=== PATIENT | male | born 1990 | race Caucasian/White ===

== ENCOUNTER 2017-10-24 01:55 | Emergency (ER) | payer OTHER ==
[2017-10-24 02:39] LABS: CHLORIDE,CL 112 mmol/L (98-110); SODIUM,NA 145 mmol/L (136-146)
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
[2017-10-24 02:52] VITALS: BP 115/62
--- NOTE | 2017-10-26 14:52 | CR ---
EXAM DATE: 10/24/17 PATIENT'S AGE: 27 Patient: LEIGH ORTIZ Facility: [place], [place] Site . Site : 1992 Study: XRay Chest [id number] 2:33:30 AM Ordering Physician: Doctor Cordoba Final Report: Indication: Pain, shortness of breath Technique: Chest 1 view. Comparison: None Findings: Cardiovascular and mediastinum: Heart size and vasculature are normal in caliber and appearance. Mediastinum is within normal limits. Lungs and pleural space: Lungs are clear. No sign of infiltrate or mass. No sign of pleural effusion. No pneumothorax. Bones and soft tissues: No significant findings. Impression: No sign of acute disease. Dictated by Jonna Bhatia MD @ Oct 24 2017 2:43AM (Electronic Signature) Report Signed by Proxy. MARCOS
--- NOTE | 2017-10-26 14:53 | CT ---
EXAM DATE: 10/24/17 PATIENT'S AGE: 27 Patient: LEIGH ORTIZ Facility: [place], [place] Site . Site : 1990 Study: CT Head WO CONT [id number]/24/[id number] 2:35:42 AM Ordering Physician: Doctor Cordoba Final Report: INDICATION: Syncope, headache TECHNIQUE: CT head without contrast. COMPARISON: None FINDINGS: CSF spaces: Within normal limits for age. Brain parenchyma: The light-white differentiation is normal. No sign of mass, hemorrhage, or midline shift. Skull base and calvarium: The visualized paranasal sinuses and mastoid air cells demonstrate no acute or significant findings. The visualized orbits are grossly unremarkable. No skull fractures. IMPRESSION: Unremarkable noncontrast head CT. Please note that all CT scans at this facility use dose modulation, iterative reconstruction, and/or weight-based dosing when appropriate to reduce radiation dose to as low as reasonably achievable. Dictated by Jonna Bhatia MD @ Oct 24 2017 2:45AM (Electronic Signature) Report Signed by Proxy. MARCOS
== END 2017-10-24 02:55 | disposition home or self-care (01) ==
LOC: MW.ED 01:55
DX: Z04.71 Encounter for examination and observation following alleged adult physical abuse (principal); F17.210 Nicotine dependence, cigarettes, uncomplicated
CPT/HCPCS: 36415; 70450; 70450-26; 71010; 71010-26; 80053; 80305; 84484; 85025; 93005; 99284; 99285-25

== ENCOUNTER 2018-12-12 19:54 | Emergency (ER) | payer OTHER ==
--- NOTE | 2018-12-12 20:22 | EDM.PDOC ---
ED HPI GENERAL MEDICAL PROBLEM - General Chief Complaint: Lower Extremity Injury/Pain Stated Complaint: PT HURT RT FOOT Time Seen by Provider: 12/12/18 20:15 - History of Present Illness INITIAL COMMENTS - FREE TEXT/NARRATIVE: HISTORY AND PHYSICAL: History of present illness: The patient is a healthy 28-year-old male who was in his usual state of good health with no systemic issues when he dropped a TV stand on to his right fifth pinky toe and lateral foot about a half an hour ago. Patient had immediate pain and was concerned about the swelling so came here immediately. He is not placed ice on it nor has he taken any [id number] meds. The remainder the toes are without tenderness as is the proximal right leg. Review of systems: As per history of present illness and below otherwise all systems reviewed and negative. Past medical history: As per history of present illness and as reviewed below otherwise noncontributory. Surgical history: As per history of present illness and as reviewed below otherwise noncontributory. Social history: No reported history of drug or alcohol abuse. Family history: As per history of present illness and as reviewed below otherwise noncontributory. Physical exam: HEENT: Atraumatic, normocephalic, negative for conjunctival pallor or scleral icterus, mucous membranes moist, throat clear, neck supple, nontender, trachea midline. Lungs: Clear to auscultation, breath sounds equal bilaterally, chest nontender. Heart: S1S2, regular, and rhythm no overt murmurs Abdomen: Soft, nondistended, nontender. NABS Pelvis: Stable nontender. Genitourinary: Deferred. Rectal: Deferred. Extremities: Atraumatic, negative for cords or calf pain. At the right lower remedy there is full range of motion without defects or deficits and there is no hip thigh knee tib-fib ankle tenderness or calcaneus tenderness. There is tenderness at palpation of the fifth toe with redness and some swelling in a very superficial abrasion and this tenderness radiates up the fifth meta- tarsal. There is no discrete deformity of the metatarsal. Neurovascular unremarkable. Neuro: Awake, alert, oriented. Cranial nerves II through XII unremarkable. Cerebellum unremarkable. Motor and sensory unremarkable throughout. Exam nonfocal. Diagnostics: X-ray right foot Therapeutics: Patient declined pain medication Impression: Right foot/fifth toe contusion Definitive disposition and diagnosis as appropriate pending reevaluation and review of above. Right Toe-Little Pain Score (Numeric/FACES): 6 - Related Data Allergies Allergy/AdvReac Type Severity Reaction Status Date / Time No Known Allergies Allergy Verified 12/12/18 20:26 Home Meds: Home Meds . [No Known Home Meds] 12/12/18 [History] Past Medical History HEENT History: Reports: None Cardiovascular History: Reports: Arrhythmia Respiratory History: Reports: Asthma Other Musculoskeletal History: shoulder injury left Neurological History: Reports: Concussion Psychiatric History: Reports: None - Infectious Disease History Infectious Disease History: Reports: None - Past Surgical History HEENT Surgical History: Reports: None Musculoskeletal Surgical History: Reports: Shoulder Surgery Social & Family History - Family History Family Medical History: Noncontributory - Caffeine Use Caffeine Use: Reports: Coffee, Soda Review of Systems - Review of Systems Review Of Systems: ROS reveals no pertinent complaints other than HPI. ED EXAM, GENERAL - Physical Exam Exam: See Below (C dictation) Course - Vital Signs Last Recorded V/S: Last Vital Signs Temp 37.1 C 12/12/18 20:27 Pulse 73 12/12/18 20:27 Resp BP 112/63 12/12/18 20:27 Pulse Ox 97 12/12/18 20:27 Departure - Departure Time of Disposition: 21:06 Disposition: Home, Self-Care 01 Condition: Good Clinical Impression: Contusion of foot including toes Qualifiers: Encounter type: initial encounter Laterality: right Qualified Code(s): S90.31XA - Contusion of right foot, initial encounter; S90.121A - Contusion of right lesser toe(s) without damage to nail, initial encounter - Discharge Information Referrals: PCP,None [Primary Care Provider] - Forms: ED Department Discharge Additional Instructions: The following information is given to patients seen in the emergency department who are being discharged to home. This information is to outline your options for follow-up care. We provide all patients seen in our emergency department with a follow-up referral. The need for follow-up, as well as the timing and circumstances, are variable depending upon the specifics of your emergency department visit. If you don't have a primary care physician on staff, we will provide you with a referral. We always advise you to contact your personal physician following an emergency department visit to inform them of the circumstance of the visit and for follow-up with them and/or the need for any referrals to a consulting specialist. The emergency department will also refer you to a specialist when appropriate. This referral assures that you have the opportunity for followup care with a specialist. All of these measure are taken in an effort to provide you with optimal care, which includes your followup. Under all circumstances we always encourage you to contact your private physician who remains a resource for coordinating your care. When calling for followup care, please make the office aware that this follow-up is from your recent emergency room visit. If for any reason you are refused follow-up, please contact the [facility] emergency department at and ask to speak to the emergency department charge nurse. Dr Giulia Walker [address] [place] [id number] [facility]- Podiatry [address] [place] [id number] Fax: [phone] Ice and elevate the area and use [id number] medications for pain such as Tylenol and ibuprofen. You may follow-up with one of our podiatrists here in town using resources given to above for further care and evaluation or with your primary care physician. Wear shoes that are comfortable and will allow your foot to expand as a more swelling. Return to ER as needed and as discussed
[2018-12-12 20:34] VITALS: BP 112/63
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
== END 2018-12-12 21:20 | disposition home or self-care (01) ==
LOC: MW.ED 19:54
DX: S90.31XA Contusion of right foot, initial encounter (principal); S90.121A Contusion of right lesser toe(s) without damage to nail, initial encounter; W20.8XXA Other cause of strike by thrown, projected or falling object, initial encounter
CPT/HCPCS: 73630-26-RT; 73630-RT; 99283

== ENCOUNTER 2020-11-14 01:04 | Emergency (ER) | payer OTHER ==
[2020-11-14] MEDS ORDERED: Albuterol HFA 18 Gm Inhaler INH ONE ×2 (01:24→01:36)
--- NOTE | 2020-11-14 01:27 | EDM.PDOC ---
ED HPI GENERAL MEDICAL PROBLEM - General Chief Complaint: General Stated Complaint: DEEP COUGH, SHORTNESS OF BREATH (HAD COVID VACCINE Time Seen by Provider: 11/14/20 01:06 - History of Present Illness INITIAL COMMENTS - FREE TEXT/NARRATIVE: History of present illness: This 30-year-old male with a history of asthma who has not used his inhaler for quite some time reports at 11:40 AM yesterday he got a COVID-19 vaccine. On the drive back from [place] to [place] he began to have symptoms feeling fevers chills cough and short of breath. His shortness of breath with exertion continues and he has a troublesome cough. He still feels febrile and chills with body aches and muscle aches. The patient's last COVID-19 test was more than a month ago. The patient enjoys reasonably good health except for the asthma. 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 [] Review of systems: As per history of present illness and below otherwise all systems reviewed and negative. Past medical history: As per history of present illness and as reviewed below otherwise noncontributory. Surgical history: As per history of present illness and as reviewed below otherwise noncontributory. Social history: No reported history of drug or alcohol abuse. Family history: As per history of present illness and as reviewed below otherwise noncontributory. Physical exam: Constitutional - well developed, well-nourished and in no acute distress HEENT - normocephalic, no evidence of trauma - external nose and mouth normal - no mass in neck and no JVD - mucosae moist EYES - full EOM, PERRL, no icterus - no evidence of inflammation, injection, or drainage Respiratory - no respiratory distress, the conversation interrupted with the distal therapy and cough. Equal bilateral expansion, lungs clear to auscultation and no abnormal lung sounds. 10 saturation 96% on room air-normal Cardiovascular - Regular Rhythm with S1 and S2 appreciated and no murmur, gallop or rub. GI - abdomen soft without distension or organomegaly - normal bowel sounds - no guard or rebound Musculoskeletal no gross deformity of long bones or joints - no tenderness, swelling or edema Neurologic - Alert and oriented times four - CN II-XII grossly intact - motor sensory and coordination symmetrically normal Psychiatric - appropriate mood and affect with normal thought content Hematologic - No petechiae or purpura - mucosa appropriate color and sclera not pale - normal nail bed color and refill Integument - no rash or evidence of trauma - normal turgor Diagnostics: [] Therapeutics: [] Impression: [] Plan: [] Definitive disposition and diagnosis as appropriate pending reevaluation and review of above. chest area Pain Score (Numeric/FACES): 6 - Related Data Allergies Allergy/AdvReac Type Severity Reaction Status Date / Time No Known Allergies Allergy Verified 11/14/20 01:19 Home Meds: Home Meds Albuterol Sulfate [Proair Hfa] 8.5 gm IH ASDIRECTED 11/14/20 [History] Past Medical History HEENT History: Reports: None Cardiovascular History: Reports: Arrhythmia Other Cardiovascular History: bradycardia Respiratory History: Reports: Asthma Other Musculoskeletal History: shoulder injury left Neurological History: Reports: Concussion Psychiatric History: Reports: None - Infectious Disease History Infectious Disease History: Reports: None - Past Surgical History HEENT Surgical History: Reports: None Musculoskeletal Surgical History: Reports: Shoulder Surgery Social & Family History - Family History Family Medical History: No Pertinent Family History - Caffeine Use Caffeine Use: Reports: Coffee, Soda ED ROS GENERAL - Review of Systems Review Of Systems: Comprehensive ROS is negative, except as noted in HPI. ED EXAM, GENERAL - Physical Exam Exam: See Below Free Text/Narrative:: My physical exam is in the HPI Course - Vital Signs Text/Narrative:: 12 28 the patient is markedly improved in terms of his cough and effort to breathe after 2 inhalations using a chamber. Patient's COVID-19 is positive. His flu is negative. Unfortunately this patient seems to become symptomatic of COVID-19 after having been vaccinated. With a positive exam CDC recommends that he go through the quarantine. Before he consider having the second dose. The physician in charge of his clinic will have to decide when to administer or if to administer the second dose. Oh 2:40 AM the interpretation I give to the x-ray is that there is no acute infiltrate. There are some diffuse scattered markings and might be a little worse than on the x-ray 24 October 2017 and this would be consistent with a viral infection that he has. Last Recorded V/S: Last Vital Signs Temp 37.7 C 11/14/20 01:10 Pulse 97 11/14/20 01:56 Resp 18 11/14/20 01:56 BP 109/69 11/14/20 01:56 Pulse Ox 97 11/14/20 01:56 - Orders/Labs/Meds Orders: Active Orders 24 hr Category Date Time Status RT Post Treatment Assessment [RC] Click to Edit Care 11/14/20 01:25 Active RT Post Treatment Assessment [RC] Click to Edit Care 11/14/20 01:36 Active RT Pre-Treatment Assessment [RC] Click to Edit Care 11/14/20 01:25 Active RT Pre-Treatment Assessment [RC] Click to Edit Care 11/14/20 01:36 Active Chest 1V Frontal [CR] Stat Exams 11/14/20 02:11 Taken Labs: Laboratory Tests 11/14/20 Range/Units 01:15 Influenza Type A RNA NEGATIVE (NEGATIVE) Influenza Type B RNA NEGATIVE (NEGATIVE) SARS-CoV-2 RNA (CAROLYN) POSITIVE H (NEGATIVE) Meds: Medications Discontinued Medications Generic Name Dose Route Start Last Admin Trade Name Freq PRN Reason Stop Dose Admin Albuterol 18 gm 11/14/20 01:24 11/14/20 01:34 Ventolin Hfa INH 11/14/20 01:25 Not Given STAT ONE Albuterol Confirm 11/14/20 01:29 11/14/20 01:36 Ventolin Hfa Administered 11/14/20 01:30 Not Given Dose 8 gm INH .STK-MED ONE Albuterol 8 gm 11/14/20 01:36 11/14/20 01:39 Ventolin Hfa INH 11/14/20 01:37 1 inhaler STAT ONE Administration Departure - Departure Time of Disposition: 02:39 Disposition: Home, Self-Care 01 Condition: Good Clinical Impression: Bronchitis due to COVID-19 virus - Discharge Information Instructions: COVID-19 Frequently Asked Questions, COVID-19, How to Use a Metered Dose Inhaler Referrals: Sam Ryan MD [Primary Care Provider] - Forms: ED Department Discharge Additional Instructions: If you feel you are having trouble breathing to the point where you might benefit from oxygen administration you should return. But the physician in charge of the that is going to administer a second dose now that you became symptomatic today and that you also have a positive COVID-19 test. [facility] - Primary Care [address] [place] [id number] [facility] [address] [place] [id number] The following information is given to patients seen in the emergency department who are being discharged to home. This information is to outline your options for follow-up care. We provide all patients seen in our emergency department with a follow-up referral. The need for follow-up, as well as the timing and circumstances, are variable depending upon the specifics of your emergency department visit. If you don't have a primary care physician on staff, we will provide you with a referral. We always advise you to contact your personal physician following an emergency department visit to inform them of the circumstance of the visit and for follow-up with them and/or the need for any referrals to a consulting specialist. The emergency department will also refer you to a specialist when appropriate. This referral assures that you have the opportunity for follow-up care with a specialist. All of these measure are taken in an effort to provide you with optimal care, which includes your follow-up. Under all circumstances we always encourage you to contact your private physician who remains a resource for coordinating your care. When calling for follow-up care, please make the office aware that this follow-up is from your recent emergency room visit. If for any reason you are refused follow-up, please contact the [facility] Emergency Department at and asked to speak to the emergency department charge nurse. Sepsis Event Note (ED) - Evaluation Sepsis Screening Result: No Definite Risk - Focused Exam Vital Signs: Vital Signs Temp Pulse Resp BP Pulse Ox 11/14/20 01:56 97 18 109/69 97 11/14/20 01:10 37.7 C 118 H 20 110/60 97 - My Orders Last 24 Hours: My Active Orders 11/14/20 01:25 RT Post Treatment Assessment [RC] Click to Edit RT Pre-Treatment Assessment [RC] Click to Edit 11/14/20 01:36 RT Post Treatment Assessment [RC] Click to Edit RT Pre-Treatment Assessment [RC] Click to Edit 11/14/20 02:11 Chest 1V Frontal [CR] Stat - Assessment/Plan Last 24 Hours: My Active Orders 11/14/20 01:25 RT Post Treatment Assessment [RC] Click to Edit RT Pre-Treatment Assessment [RC] Click to Edit 11/14/20 01:36 RT Post Treatment Assessment [RC] Click to Edit RT Pre-Treatment Assessment [RC] Click to Edit 11/14/20 02:11 Chest 1V Frontal [CR] Stat
[2020-11-14] MEDS ORDERED: Albuterol 8 GM Inhaler INH ONE (01:29)
[2020-11-14 02:03] LABS: CORONAVIRUS COVID-19 NAA POSITIVE (NEGATIVE); INFLUENZA A NAA NEGATIVE (NEGATIVE); INFLUENZA B NAA NEGATIVE (NEGATIVE)
[2020-11-14 02:42] VITALS: BP 106/66; PULSE 89
--- NOTE | 2020-11-14 02:43 | CR ---
Indication: Shortness of breath and cough. COVID positive Technique: Chest 1 view Comparison: Chest x-ray 10/24/2017 Findings/Impression: Cardiovascular and mediastinum: Heart size and vasculature are normal in caliber and appearance. Lungs and pleural space: Lungs are clear. No sign of infiltrate or mass. No sign of pleural effusion. No pneumothorax. Bones and soft tissues: Screws at the level of the left glenoid. Dictated by Valeriy Mccabe MD @ Nov 14 2020 2:41AM Signed by Dr. Valeriy Mccabe @ Nov 14 2020 2:42AM
== END 2020-11-14 02:47 | disposition home or self-care (01) ==
LOC: MW.ED 01:04
DX: U07.1 COVID-19 (principal); J40 Bronchitis, not specified as acute or chronic
CPT/HCPCS: 0240U; 71045; 99285; A9270; 99283; J3535-GY

== ENCOUNTER 2021-11-30 05:19 | Emergency (ER) | payer OTHER ==
[2021-11-30] MEDS ORDERED: Lidocaine 2% 5 ML SDV ONE (05:31)
[2021-11-30] MEDS ORDERED: Albuterol/Ipratropium 3.0-0.5 MG/3 ML Neb Soln NEB ONE (05:33)
[2021-11-30 06:12] VITALS: BP 107/60; PULSE 110
== END 2021-11-30 06:12 | disposition home or self-care (01) ==
LOC: MW.ED 05:19
DX: R05.9 Cough, unspecified (principal); Z86.16 Personal history of COVID-19
CPT/HCPCS: 71045; 71045-26; 99283-25; J7620-GY

== ENCOUNTER 2022-01-20 21:51 | Emergency (ER) | payer OTHER ==
[2022-01-20 22:26] VITALS: BP 105/64; PULSE 86
== END 2022-01-21 00:35 | disposition home or self-care (01) ==
LOC: MW.ED 21:51
DX: S63.601A Unspecified sprain of right thumb, initial encounter (principal); W20.8XXA Other cause of strike by thrown, projected or falling object, initial encounter; Y93.89 Activity, other specified
CPT/HCPCS: 73130-26-RT; 73130-RT; 99282; 99283-25

== ENCOUNTER 2022-08-12 12:35 | Emergency (ER) | payer SELFPAY ==
[2022-08-12 14:52] VITALS: BP 118/81; PULSE 54
== END 2022-08-12 19:30 | disposition left against medical advice (07) ==
LOC: MW.ED 12:35
DX: Z53.21 Procedure and treatment not carried out due to patient leaving prior to being seen by health care provider (principal)

== ENCOUNTER 2022-11-13 17:00 | Emergency (ER) | payer OTHER ==
[2022-11-13 17:10] VITALS: BP 118/62
[2022-11-13] MEDS ORDERED: predniSONE 1 MG Tab PO STA (18:05)
[2022-11-13] MEDS ORDERED: Diazepam 5 MG Tab PO STA (18:15)
[2022-11-13] MEDS ORDERED: methylPREDNISolone Sodium Succinate 40 MG/1 ML SDV IVPUSH STA (18:29)
[2022-11-13 21:25] VITALS: PULSE 61
== END 2022-11-13 21:23 | disposition home or self-care (01) ==
LOC: MW.ED 17:00
DX: M51.27 Other intervertebral disc displacement, lumbosacral region (principal); M54.41 Lumbago with sciatica, right side; J45.909 Unspecified asthma, uncomplicated
CPT/HCPCS: 72148; 96374; 99284; A9270; J2920